=== PATIENT | female | born 1955 | race African-American/Black ===

== ENCOUNTER 2021-08-30 04:22 | Day surgery (SDC) | payer OTHER ==
[2021-08-25 13:09] VITALS: BMI 29.3
[2021-08-30] MEDS ORDERED: IBUPROFEN 600 MG TABLET (FP) PO PRN (07:57)
[2021-08-30] MEDS ORDERED: ONDANSETRON 4 MG/2 ML VIAL IVPUSH PRN ×2 (07:57→10:20)
[2021-08-30] MEDS ORDERED: IBUPROFEN 800 MG/8 ML IJ IVPB PRN ×2 (07:57→08:11)
[2021-08-30] MEDS ORDERED: oxyCODONE HCL 5 MG TABLET PO PRN (07:57)
[2021-08-30] MEDS ORDERED: ELECTROLYTE-148 SOLN 1,000 ML IV SCH (08:00)
[2021-08-30] MEDS ORDERED: PHENYLEPHRINE HCL 10 MG/1 ML SINGLE DOSE VIAL ONE (09:45)
[2021-08-30] MEDS ORDERED: PROPOFOL 20 ML ONE (09:48)
[2021-08-30] MEDS ORDERED: SUCCINYLCHOLINE CHLORIDE 200 MG/10 ML SYRINGE ONE (09:49)
[2021-08-30 12:41] VITALS: BP 132/68; PULSE 62; TEMP 97.7
== END 2021-08-30 12:44 | disposition home or self-care (01) ==
LOC: JASU-SURG 04:22
PROVIDERS: ATTEND Obstetrics & Gynecology
PROC: 0UB98ZX Excision of Uterus, Via Natural or Artificial Opening Endoscopic, Diagnostic (ICD-10-PCS; 2021-08-30)
PROC: 0UDB7ZX Extraction of Endometrium, Via Natural or Artificial Opening, Diagnostic (ICD-10-PCS; 2021-08-30)
PROC: 0UBC8ZX Excision of Cervix, Via Natural or Artificial Opening Endoscopic, Diagnostic (ICD-10-PCS; principal; 2021-08-30 09:00)
DX: N84.1 Polyp of cervix uteri (principal); N84.0 Polyp of corpus uteri
CPT/HCPCS: 88305-TC; 94760